=== PATIENT | male | born 1980 | race African-American/Black ===

== ENCOUNTER → 2019-04-15 | Outpatient (CLI) | payer OTHER ==
--- NOTE | 2019-04-15 10:42 | MR ---
EXAMINATION TYPE: MR lumbar spine wo con DATE OF EXAM: 04/15/2019 COMPARISON: NONE HISTORY: Lower back pain with radiculopathy TECHNIQUE: T1 and T2 axial and sagittal images of the lumbar spine are submitted. FINDINGS: There is no abnormal signal seen within the visualized spinal cord or paraspinal soft tissu es. At L1-2 there is no evidence of degenerative disc disease, disc herniation, or canal stenosis. No for aminal encroachment. At L2-3 there is maintenance of disc signal and space with no evidence of degenerative disc disease. No focal herniation or foraminal encroachment. Minimal central disc bulging which effaces the thecal sac. At L3-4 there is maintenance of disc signal and space with no evidence of degenerative disc disease. There is mild broad-based and circumferential disc bulging slightly greater paracentrally and lateral ly left with mild left foraminal encroachment. No Canal stenosis. At L4-5 there is very mild central disc bulging and flattening of the thecal sac. There is no focal h erniation or canal stenosis. Mild bilateral foraminal encroachment and mild effacement of thecal sac. Diminutive spinal canal contributes. Mild ligamentum flavum hypertrophy. At L5-S1 there is maintenance of disc signal and space. No disc herniation, canal stenosis, or forami nal encroachment. Incidental note is made of a less than 1 cm area of increased signal within the annette um posteriorly on the right most typical of a small hemangioma. IMPRESSION: 1. No evidence of degenerative disc disease, focal herniation or canal stenosis. However there is mil d broad-based disc bulging at levels L3-4 and L4-L5 with mild thecal sac flattening secondary to dimi nutive spinal canal. This results in mild bilateral foraminal encroachment at both levels. At L3-L4 t here is greater involvement paracentrally and laterally to left with greater left-sided foraminal enc roachment.
== END | disposition home or self-care (01) ==
LOC: RADMRIMAIN 09:47
PROVIDERS: ATTEND Surgery
DX: M51.16 Intervertebral disc disorders with radiculopathy, lumbar region (principal)
CPT/HCPCS: 72148

== ENCOUNTER → 2019-05-25 | Outpatient (CLI) | payer OTHER ==
--- NOTE | 2019-05-25 10:55 | P.PAINCN ---
History of Present Illness - Reason for Consult Consult date: 05/25/19 - History of Present Illness This is a 39 years old male with 3-4 month history of severe low back pain with radiation to the lower extremity associated with numbness and tingling sensation, started after he was doing exercise, and the pain used to radiate to the feet bilaterally, but over the last few weeks the pain slightly improved and now is radiating from the low back area towards the knee bilaterally, he denies any motor or sensory deficit he is able to ambulate, to report any activity increases pain intensity of the pain 6-01/11, and the pain increased with changing position or with walking, bending, leaning forward, he tried home physical physical therapy, TENS unit, with minimal benefit Medications and Allergies Home Medications Medication Instructions Recorded Confirmed Type Cyclobenzaprine [Flexeril] 1 tab PO HS 05/25/19 05/25/19 History Voltren Gel 05/25/19 History Allergies Allergy/AdvReac Type Severity Reaction Status Date / Time No Known Allergies Allergy Verified 05/25/19 10:28 Physical Exam Vitals: Intake and Output 05/24/19 05/25/19 05/25/19 22:59 06:59 14:59 Other: Weight 94.347 kg Physical Examinations : -Constitutiona : Cooperative , not in acute distress . -HEENT : nech : supple , no Lymphadenopathy , normal thyroid size . : eyes : no ptosis , no icterus, no photophobia . - neurologic : Cranial nerve II to XII intact , no focal neurological deffecit . -psychatric : alert , oriented X 3 , appropriate affect , intact judgment and insight . -Lymphatic : no Lymphadenopathy . - musculoskeltal : Lumber spine moter stegnth lower extremities ,thigh and legs 5/5 Right side , 5/5 Left side deep tendon reflexes : normal Knee Jerk , normal ankle Jerk lumber facet Loading Test = negative Right , negative Left Range of motion of the lumbar spine Flexion 30 degrees, extension 10 degrees strait leg raising test = positive at 30 degree bilaterally Fabere test= positive Right , and positive LT . Results Comments: MRI of the lumbar spine done at [facility]= L2-3 and L3 4 and L 45 bulging disc disease Assessment and Plan Plan: Assessment and plan= lumbar radiculopathy Lumbar bulging disc disease Patient will be good candidate to have lumbar epidural steroid injection under fluoroscopy guidance at L3 4 levels Time with Patient: Greater than 30 PQRS Measure Charge Sheet Measure #130: Documentation of Current Meds in Medical Chart: Patient's medications documented in chart Measure #226: Tobacco Use: Screen & Cessation Intervention: Pt not a tobacco user Measure #111: Pneumonia Vaccination: Pneumococcal vaccine administered or previously received Measure #47: Advance Care Plan: Advance care planning discussed & documented, pt chose/unable to give Measure #412: Opioid Treatment Agreement: No documentation of signed opioid treatment agreement Measure #408: Opioid Therapy Follow-up Evaluation: Patient had NO f/u eval minimum every 3 months during opioid therapy Measure #317: Preventitive Care & Scrn High Bld Press & F/U: Pre-hypertensive or hypertensive BP documented, pt will f/u with PCP Measure #128: Body Mass Index (BMI) Screening & Follow-up: BMI documented ABOVE normal parameters - f/u documented Measure #131: Pain Assessment & Follow-up: Pain positive & plan documented, Follow-up scheduled Measure #431: Unhealthy Alcohol Use Preventative Care & Scrn: Patient not identified as an unhealthy alcohol user Home Medications: Ambulatory Orders Cyclobenzaprine [Flexeril] 1 tab PO HS 05/25/19 Voltren Gel 05/25/19
[2019-05-25 12:18] VITALS: BP 151/83; PULSE 72; RESP 18
== END | disposition home or self-care (01) ==
LOC: PNWHC3 10:18
PROVIDERS: ATTEND Specialist
DX: M54.16 Radiculopathy, lumbar region (principal); M51.86 Other intervertebral disc disorders, lumbar region; Z79.899 Other long term (current) drug therapy
CPT/HCPCS: 99211

== ENCOUNTER 2019-06-07 09:41 | Day surgery (SDC) | payer OTHER ==
[~2019-06-07 09:41] MED LIST: LACTATED RINGERS 1,000 ML IV SCH
[2019-06-07 10:04] VITALS: TEMP 97.6
--- NOTE | 2019-06-07 10:44 | P.PCN ---
Date of Procedure: 06/07/19 Procedure(s) Performed: PREOPERATIVE DIAGNOSIS: 1- Lumbar bulging Disc Diseases 2-Lumbar radiculopathy POSTOPERATIVE DIAGNOSIS: Same as preop diagnosis PROCEDURE 1. Lumbar epidural steroid injection under fluoroscopic guidance at the L3-4 level. (Fluoroscopy imaging was available in radiology department) 2. Lumbar epidurogram. ANESTHESIA: Local with 1% lidocaine 3 ml only EBL: Minimal PROCEDURE INDICATION: The patient with low back pain and radiculitis symptoms unresponsive to conservative treatment. Fluoroscopy was used to optimize visualization of the needle placement and to maximize safety. PROCEDURE DESCRIPTION / TECHNIQUE: The patient was seen and identified in the preoperative area. Risks, benefits, complications including but not limited to infections ,bleeding ,allergic reaction to the medications ,nerve damage and not complete pain releife , and a lternatives were discussed with the patient. The patient agreed to proceed with the procedure and signed the consent. IV was started, and vital signs were stable. Patient was taken to the OR and time out was completed. The patient was placed in the prone position on procedure table and a pillow was placed under the abdomen to reduce lumbar lordosis. The lumbosacral area was prepped and draped in the usual sterile fashion.ere closely monitored during the procedure. Conscious sedation was used during the procedure to decrease patients anxiety. Vital signs was monitered during the entire procedure. Using anterior-posterior fluoroscopy, the L3-4 interlaminar space was identified and the skin over this site was marked and then infiltrated with 1% lidocaine subcutaneously. Subsequently, a 20-gauge Tuohy epidural needle was inserted and advanced toward the epidural space using the ``Loss of resistance technique and guided by AP and lateral fluoroscopy. The correct needle position in the epidural space was verified with the injection of 2 mL of the water soluble contrast dye Isovue 200 contrast and observing an excellent epidurogram with the epidural spread of the dye, after negative aspiration for blood and CSF and in the absence of paresthesias. Again after negative aspiration, a 6 ml mixture containing 80 mg of Depo-medrol , and 2 ml of preservative free Normal Saline, and 2 ml of preservative free lidocaine 1% solution was injected and a washout of epidurogram was seen. Needle was withdrawn intact, skin was cleansed, and bandages were applied. COMPLICATIONS: None DISPOSITION / PLANS: The patient was placed in a supine position and transferred to the recovery area in a stable condition for observation. There was no evidence of lower extremity motor or sensory deficit after the procedure. Patient was discharged from the recovery room after meeting discharge criteria. Home discharge instructions were given to the patient by the staff. The patient was reexamined prior to discharge. The patient will schedule a follow up in the clinic in 2-4 weeks.
--- NOTE | 2019-06-07 10:58 | FL ---
EXAMINATION TYPE: FL guided pain mgmt statistic DATE OF EXAM: 06/07/2019 HISTORY: Flouroscopy time 1 seconds of fluoroscopy provided. IMPRESSION: 1. Fluoroscopy time.
[2019-06-07 11:00] VITALS: BP 119/78; PULSE 85; RESP 16
== END 2019-06-07 10:50 | disposition home or self-care (01) ==
LOC: ORPAIN 09:41
PROVIDERS: ATTEND Specialist
DX: M51.16 Intervertebral disc disorders with radiculopathy, lumbar region (principal)
CPT/HCPCS: 62323; J1030; Q9966

== ENCOUNTER 2019-06-22 10:14 | Day surgery (SDC) | payer OTHER ==
[2019-06-22 10:32] VITALS: RESP 16; TEMP 97.6
[2019-06-22] MEDS ORDERED: LACTATED RINGERS 1,000 ML IV SCH (11:30)
--- NOTE | 2019-06-22 11:33 | P.PCN ---
Date of Procedure: 06/22/19 Procedure(s) Performed: PREOPERATIVE DIAGNOSIS: 1- Lumbar radiculopathy, Lumbar Degenerative Disc Diseases POSTOPERATIVE DIAGNOSIS: PROCEDURE 1. Lumbar epidural steroid injection under fluoroscopic guidance at the L3-4 level using a left paramedian approach 2. Lumbar epidurogram. ANESTHESIA: Local with 1% lidocaine 3 ml, no IV sedation was used Fluoroscopy was used for the procedure and images were saved in the radiology portion of the chart. EBL: Minimal PROCEDURE INDICATION: The patient with low back pain and radiculitis symptoms unresponsive to conservative treatment. Fluoroscopy was used to optimize visualization of the needle placement and to maximize safety. PROCEDURE DESCRIPTION / TECHNIQUE: The patient was seen and identified in the preoperative area. Risks, benefits, complications including but not limited to infections ,bleeding ,allergic reaction to the medications ,nerve damage and incomplete pain releif , and alternatives were discussed with the patient. The patient agreed to proceed with the procedure and signed the consent. vital signs were stable. Patient was taken to the OR and time out was completed. The patient was placed in the prone position on procedure table and a pillow was placed under the abdomen to reduce lumbar lordosis. The lumbosacral area was prepped and draped in the usual sterile fashion. Vitals were closely monitored during the procedure. Using anterior-posterior fluoroscopy, the L3-4 interlaminar space was identified and the skin over this site was marked and then infiltrated with 1% lidocaine subcutaneously. Subsequently, a 20-gauge 3.5" Tuohy epidural needle was inserted and advanced toward the epidural space using the loss of resistance technique and guided by AP and lateral/ oblique fluoroscopy. The correct needle position in the epidural space was verified with the injection of 2 mL of the water soluble contrast dye Isovue 200 contrast under live fluoroscopy, observing an excellent epidurogram. Then, after negative aspiration for blood and CSF and in the absence of paresthesias, a 5 ml mixture containing 80 mg of Depo-medrol , 3 ml of preservative free Normal Saline, and 1 ml of preservative free lidocaine 1% solution was injected and a washout epidurogram was seen. Needle was withdrawn intact, skin was cleansed, and bandages were applied. COMPLICATIONS: None DISPOSITION / PLANS: The patient was placed in a supine position and transferred to the recovery area in a stable condition for observation. There was no evidence of lower extremity motor or sensory deficit after the procedure. Patient was discharged from the recovery room after meeting discharge criteria. Home discharge instructions were given to the patient by the staff. The patient will schedule a follow up in the clinic in 2-4 weeks.
[2019-06-22 11:35] VITALS: BP 136/76; PULSE 66
--- NOTE | 2019-06-22 13:00 | FL ---
Fluoroscopy HISTORY: Pain 4 seconds fluoroscopy time supplied to the referring clinician. 2 intraoperative C-arm images docume nt the procedure. See dictated report from anesthesia.
== END 2019-06-22 12:02 | disposition home or self-care (01) ==
LOC: ORPAIN 10:14
PROVIDERS: ATTEND Anesthesiology
DX: M51.16 Intervertebral disc disorders with radiculopathy, lumbar region (principal)
CPT/HCPCS: 62323; J1030; Q9966